=== PATIENT | male | born 1980 | race Caucasian/White ===

== ENCOUNTER 2018-01-10 01:41 | Observation (INO) ==
[2018-01-10] MEDS ORDERED: *HR* LORazepam 2 MG/ML VIAL IVP ONE (01:46)
[2018-01-10] MEDS ORDERED: 0.9 % Sodium Chloride 1,000 ML IVC ONE (01:46)
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
[2018-01-10 02:09] LABS: Basophils # 0.1 K/mcL (0.0-0.2); Basophils % 0.2 %; Eosinophils % 0.1 %; Hematocrit 37.7 % (37.5-50.1); Hemoglobin 12.6 g/dL (12.9-16.9); Immature Granulocytes % 0.8 % (0-4); Lymphocytes # 1.4 K/mcL (0.6-4.6); Lymphocytes % 5.8 %; Mean Corpuscular HGB Conc 33.4 g/dL (31.6-35.5); Mean Corpuscular Hemoglobin 31.1 pg (28.0-33.3); Mean Corpuscular Volume 93.1 fL (83.0-100.0); Mean Platelet Volume 12.8 fL (9.4-12.4); Monocytes # 1.9 K/mcL (0.0-1.3); Monocytes % 7.6 %; Platelet Count 116 K/mcL (140-400); Red Blood Count 4.05 M/mcL (4.19-5.50); Red Cell Distribution Width 12.2 % (11.5-14.5); Segmented Neutrophils % 85.5 %
[2018-01-10 02:33] LABS: Bilirubin,Urine Negative (Negative); Blood,Urine Negative (Negative); Clarity,Urine Clear (Clear); Color,Urine Yellow (Yellow); Glucose,Urine (UA) Normal (Normal); Ketones,Urine Negative (Negative); Leukocyte Esterase,Urine Negative (Negative); Nitrite,Urine Negative (Negative); Protein,Urine Negative (Neg-Trace); Specific Gravity,Urine 1.019 (1.010-1.025); Urobilinogen,Urine Normal (Normal)
[2018-01-10 02:41] LABS: Alanine Aminotransferase 9 Units/L (7-52); Albumin 4.2 g/dL (3.5-5.7); Albumin/Globulin Ratio 1.8 (1.1-2.2); Alkaline Phosphatase 71 Units/L (34-104); Aspartate Amino Transferase 14 Units/L (13-39); BUN/Creatinine Ratio 9 (6-26); Bilirubin,Total 0.7 mg/dL (0.3-1.0); Blood Urea Nitrogen 10 mg/dL (6-20); Calcium 9.3 mg/dL (8.6-10.3); Carbon Dioxide 28 mEq/L (23-29); Chloride 104 mEq/L (98-107); Globulin 2.3 g/dL (2.4-3.5); Glucose 108 mg/dL (70-105); Magnesium 1.7 mg/dL (1.6-2.6); Osmolality,Calculated 284 (280-300); Phosphorous 2.5 mg/dL (2.7-4.5); Potassium 3.5 mEq/L (3.5-5.1); Sodium 137 mEq/L (136-145); Total Protein 6.5 g/dL (6.4-8.9); eGFR For African Americans > 60 (> 60); eGFR For Non-African Americans > 60 (> 60)
[2018-01-10 03:04] LABS: Amphetamine Screen,Urine Positive ng/mL (Cutoff=1000); Barbiturate Screen,Urine Negative ng/mL (Cutoff=200); Benzodiazepines Screen,Urine Negative ng/mL (Cutoff=200); Cannabinoid Screen,Urine Negative ng/mL (Cutoff = 50); Cocaine Screen,Urine Negative ng/mL (Cutoff= 300); Opiate Screen,Urine Positive ng/mL (Cutoff=300); Phencyclidine Screen,Urine Negative ng/mL (Cutoff=25)
[2018-01-10] MEDS ORDERED: Azithromycin 500 MG in D5% in Water 250 ML IVPB ONE (03:30)
[2018-01-10 03:42] LABS: VBG HCO3 29 mEq/L (21-27); VBG PCO2 56 mmHg (41-51); VBG PH 7.32 pH Units (7.32-7.42); VBG PO2 159 mmHg (25-50)
[2018-01-10] MEDS ORDERED: Ammonia Inhalant AMPUL ONE (04:21)
[2018-01-10] MEDS ORDERED: Ammonia Inhalant AMPUL IH ONE (04:29)
[2018-01-10] MEDS ORDERED: Naloxone 0.4 MG/ML INJ IVP PRN (08:57)
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
[2018-01-10] MEDS ORDERED: Potassium Phosphate 44 MEQ in 0.9 % Sodium Chloride 250 ML IVPB ONE (10:43)
[2018-01-10] MEDS ORDERED: *HR* LORazepam 2 MG/ML VIAL IVP STA (10:43)
[2018-01-10] MEDS ORDERED: *HR* LORazepam 2 MG/ML VIAL IVP PRN (11:08)
[2018-01-10] MEDS: Ampicillin/Sulbactam 3,000 MG in 0.9 % Sodium Chloride Mini Bag 100 ML IVPB SCH ×2 (11:14→17:23)
[2018-01-10] MEDS: 0.9 % Sodium Chloride 1,000 ML IVC SCH ×2 (11:14→23:42)
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
[2018-01-10] MEDS ORDERED: Phenytoin 1,000 MG in SYRINGE 1 EACH IVPB ONE (15:32)
--- NOTE | 2018-01-10 15:49 | EEG/EMG/Oth Biometrics Report ---
EEG Procedure Report Date of procedure: 01/10/18 EEG Procedure: Routine EEG Procedure Note: This is a report of a 21 channel bipolar and referential montage EEG. The posterior dominant rhythm consists primarily of beta frequencies posteriorly but she does not react to eye opening. Hyperventilation was not performed during the recording. Periods of drowsiness and stage II sleep were identified as referenced by dropout of the posterior resting rhythm and the occurrence of vertex activity, K complexes, and sleep spindles. Photic stimulation is performed and does not produce a driving response. The EKG rhythm strip reveals normal sinus rhythm at 78 bpm. Impressions: This EEG recording is within normal limits. There is no evidence of epileptiform activity identified during the recording. Comment: Beta frequencies may indeed represent sent a normal variant however may also be manufacturer representative of a host of metabolic causes, anxiety and medication effect namely benzodiazepines and barbiturates. A normal EEG does not preclude a diagnosis of seizure or epilepsy. If the clinical suspicion for seizure activity is high, serial EEGs or perhaps a prolonged recording may increase the yield. Please correlate clinically.
[2018-01-11] MEDS: Ampicillin/Sulbactam 3,000 MG in 0.9 % Sodium Chloride Mini Bag 100 ML IVPB SCH ×2 (01:03→06:03)
[2018-01-11] MEDS ORDERED: Acetaminophen 325 MG TABLET PO PRN (05:19)
[2018-01-11 06:06] LABS: Basophils % 0.3 %; Red Cell Distribution Width 12.4 % (11.5-14.5)
[2018-01-11 06:07] LABS: Eosinophils # 0.1 K/mcL (0.0-0.6); Eosinophils % 0.8 %; Hematocrit 34.6 % (37.5-50.1); Hemoglobin 11.5 g/dL (12.9-16.9); Immature Granulocytes % 0.3 % (0-4); Lymphocytes # 2.5 K/mcL (0.6-4.6); Lymphocytes % 20.8 %; Mean Corpuscular HGB Conc 33.2 g/dL (31.6-35.5); Mean Corpuscular Hemoglobin 31.5 pg (28.0-33.3); Mean Corpuscular Volume 94.8 fL (83.0-100.0); Mean Platelet Volume 13.6 fL (9.4-12.4); Monocytes # 0.9 K/mcL (0.0-1.3); Monocytes % 7.6 %; Neutrophils # 8.3 K/mcL (1.6-8.9); Nucleated Red Blood Cells 0.2 /100 WBC (0); Platelet Count 101 K/mcL (140-400); Red Blood Count 3.65 M/mcL (4.19-5.50); Segmented Neutrophils % 70.2 %
[2018-01-11 06:36] LABS: BUN/Creatinine Ratio 8 (6-26); Blood Urea Nitrogen 8 mg/dL (6-20); Calcium 8.2 mg/dL (8.6-10.3); Carbon Dioxide 25 mEq/L (23-29); Chloride 110 mEq/L (98-107); Glucose 126 mg/dL (70-105); Osmolality,Calculated 288 (280-300); Potassium 3.6 mEq/L (3.5-5.1); Sodium 139 mEq/L (136-145); eGFR For African Americans > 60 (> 60); eGFR For Non-African Americans > 60 (> 60)
[2018-01-11 07:08] VITALS: BP 122/69
--- NOTE | 2018-01-11 08:35 | Neurology Progress Note ---
Date of Encounter: 01/11/18 Time of Encounter: 08:33 Assessment and Plan (1) Altered mental status Current Visit: Yes Status: Acute Atypical case. Pt. may have had a symptomatic seizure due to the amphetamines. Not certain whether he truly has epilepsy. Noncompliance is also an issue as is medical insurance. I will check PHT level and follow up as an out patient. Seizure precautions were discussed. No driving. May d/c on PHT 300mg QD. Qualifiers: Altered mental status type: disorientation Qualified Code(s): R41.0 - Disorientation, unspecified Subjective Interval history: Chart reviewed, pt. seen and examined. Sleeping upon my entering the room. Easily aroused to voice. No complaints this am. No further seizures. MRI/EEG were both negative. Pt. loaded on PHT. Objective - Constitutional Vitals: Temp Pulse Resp BP Pulse Ox 98.6 F 91 16 122/69 93 01/11/18 07:03 01/11/18 07:03 01/11/18 07:03 01/11/18 07:03 01/11/18 07:03 - Neurological Exam Sensorimotor examination: Present: intact Motor examination - right side: 5/5: deltoids, biceps, triceps, director report, hip flexors, tibialis Anterior, quadriceps, toe extension (EHL), plantarflexion Motor examination - left side: 5/5: deltoids, biceps, triceps, hip flexors, director report , quadriceps, tibialis Anterior, toe extension (EHL), plantarflexion Sensation intact: Present: intact Mental Status Examination: Present: oriented to person, oriented to place, oriented to time, follows commands appropriately, drowsy, answers questions by nodding yes or no Cranial nerve examination: Present: PERRL, EOMI, sensory to face intact, mastication intact, no facial asymmetry is present, no dysarthria, hearing is intact symmetrically, soft palate elevates bilaterally upon phonation, flexes SCM and trapezius muscles symmetrically with full power, tongue protrudes midline, no atrophy or facial fasiculations present Results - Laboratory Findings CBC and BMP: 01/11/18 05:18 01/11/18 05:18 Abnormal lab findings: Abnormal lab results WBC 11.8 K/mcL (4.3-11.1) H D 01/11/18 05:18 RBC 3.65 M/mcL (4.19-5.50) L 01/11/18 05:18 Hgb 11.5 g/dL (12.9-16.9) L 01/11/18 05:18 Hct 34.6 % (37.5-50.1) L 01/11/18 05:18 Plt Count 101 K/mcL (140-400) L 01/11/18 05:18 MPV 13.6 fL (9.4-12.4) H 01/11/18 05:18 Nucleated RBCs/100 WBC 0.2 /100 WBC (0) H 01/11/18 05:18 Immature Plt Fraction 18.0 % (1.1-6.1) H 01/11/18 05:18 VBG pCO2 56 mmHg (41-51) H 01/10/18 03:40 VBG pO2 159 mmHg (25-50) H 01/10/18 03:40 VBG HCO3 29 mEq/L (21-27) H 01/10/18 03:40 Chloride 110 mEq/L (98-107) H 01/11/18 05:18 Glucose 126 mg/dL (70-105) H 01/11/18 05:18 POC Glucose 104 (58-89) H 01/10/18 19:41 Calcium 8.2 mg/dL (8.6-10.3) L 01/11/18 05:18 Phosphorus 2.5 mg/dL (2.7-4.5) L 01/10/18 02:02 Globulin 2.3 g/dL (2.4-3.5) L 01/10/18 02:02 Urine Opiates Screen Positive ng/mL (Pznzaz=839) H 01/10/18 02:28 Ur Amphetamines Screen Positive ng/mL (Eeclxe=2786) H 01/10/18 02:28 Consult Discharge Plan - Plan Referrals: NONE,PCP [Primary Care Provider] -
--- NOTE | 2018-01-11 09:29 | Discharge Summary ---
- NOTES TO OUTPATIENT PROVIDER Notes to Outpatient Provider: Establish PCP. Follow up with Neurologist Orders not resulted at time of discharge: Pending orders 01/10/18 15:41 Consult to Interpret Exam [CONS] Routine 01/10/18 16:02 Consult to Folder Seamer [CONS] Routine 01/11/18 08:39 Phenytoin Free and Total Routine Date of Encounter: 01/11/18 Time of Encounter: 09:26 - Discharge Diagnosis (1) Altered mental status Priority: Primary Status: Resolved Comments: resolved secondary to seizures, and possible polysubstance abuse patient is not interested in detox Qualifiers: Altered mental status type: disorientation Qualified Code(s): R41.0 - Disorientation, unspecified (2) Pneumonia Priority: Primary Status: Acute Comments: aspiration, possibly during seizure episode discharged on augmentin Qualifiers: Pneumonia type: due to unspecified organism Laterality: left Lung location: lower lobe of lung Qualified Code(s): J18.1 - Lobar pneumonia, unspecified organism (3) Positive urine drug screen Priority: Primary Status: Acute Comments: refuses intervention (4) Seizure Priority: Primary Status: Acute Comments: neurology evaluated patient in-house Brain MRI unremarkable EEG unemarkable Moslty due to non-compliance Started on dilantin by neurologist Discharged on same Follow up with PCP and neurolgist (5) Sepsis Priority: Primary Status: Ruled-out Comments: ruled out SIRS can be explained by seizures, patient is afebrile Qualifiers: Sepsis type: sepsis due to unspecified organism Qualified Code(s): A41.9 - Sepsis, unspecified organism (6) DVT prophylaxis Priority: Primary Status: Resolved Hospital course: Mr. Pozo is a 37 year old male Discharge discussed with: patient Time spent discussing smoking cessation with patient: 3 to 10 minutes - Time Spent with Patient Total time spent providing and/or coordinating discharge services: Less than 30 minutes - Discharge Medications Prescriptions: Amoxicillin/Clavulanate [Augmentin] 875 mg PO BIDWM #10 tablet Phenytoin ER [Dilantin ER] 300 mg PO HS #90 capsule Home Medications: Amoxicillin/Clavulanate [Augmentin] 875 mg PO BIDWM #10 tablet 01/11/18 [Rx] Phenytoin ER [Dilantin ER] 300 mg PO HS #90 capsule 01/11/18 [Rx] Allergies/Adverse Reactions: 3 Allergy/AdvReac Type Severity Reaction Status Date / Time No Known Allergies Allergy Verified 04/20/17 18:58 Date of admission: 01/10/18 04:28 Primary care physician: PCP NONE Consults: 01/10/18 11:01 Consult to Neurology [CONS] Stat Consulting Provider: [facility] Reason for Consult: Seziure-like activity; Hx of seizure secondary to TBI in 2003 Time Notified: 11:02 Call Completed: Yes 01/10/18 15:41 Consult to Interpret Exam [CONS] Routine Consulting Provider: Godwin Gallo Consult to Interpret Exam: Interpret EEG 01/10/18 16:02 Consult to Folder Seamer [CONS] Routine Reason for SW Consult: Substance abuse Discharging clinician: Jeferson Lucas Anticipated date of discharge: 01/11/18 - Constitutional Vitals: Temp Pulse Resp BP Pulse Ox 98.6 F 91 16 122/69 93 01/11/18 07:03 01/11/18 07:03 01/11/18 07:03 01/11/18 07:03 01/11/18 07:03 General appearance: Present: A&O X 3, no acute distress - Head Head exam: Present: atraumatic, normocephalic - Eye Eye exam: Present: PERRL, conjuntiva pink, sclera anicteric Pupils: Present: PERRL - Neck Neck exam general surgery: Present: supple, trachea midline. Absent: lymphadenopathy - Respiratory Respiratory exam: Present: CTAB. Absent: accessory muscle use, rales, rhonchi, wheezes - Cardiovascular Cardiovascular exam: Present: RRR, +S1, +S2. Absent: diastolic murmur, gallop, rubs, systolic murmur - GI/Abdominal GI/Abdominal exam: Present: normal bowel sounds, soft, no peritoneal signs. Absent: distended, tenderness - Extremities Exam Extremities exam: Present: warm, radial pulses palpable and symmetrical. Absent : calf tenderness, cyanotic, pedal edema - Neurological Exam Neurological exam: Present: alert, CN II-XII intact, oriented X3, no focal deficits. Absent: pronater drift, facial droop, speech deficit - Skin Skin exam: Present: dry, intact - Patient Status Disposition: Home, Self-Care Condition: Good Functional capacity at discharge: independent ambulation Overall status at discharge: patient is back to baseline - Discharge Instructions Instructions: Phenytoin (By mouth), Amoxicillin/Clavulanate Potassium (By mouth ), Sepsis (DC), Non-epileptic Seizures (DC), Pneumonia (DC) Follow Up With: Godwin Gallo DO [Partnered Physician] - 01/14/18 12:15 pm (DR GALLO WILL MONITOR DILANTIN LEVELS AND GIVE REFILLS FOR DILANTIN ER, YOU MUST KEEP THESE APPOINTMENTS IN ATTEMPTS TO PREVENT FUTURE SEIZURES) NONE,PCP [Primary Care Provider] - Rigo Bustos MD [Non-Partnered Physician] - 01/14/18 9:15 am Additional Instructions: follow neurologist, DR Godwin Gallo as outpatient for dilantin blood levels and prescription refills No driving until Dr. Gallo from neurology states ok to drive. - Diet and Activity Activity: resume usual activities as tolerated Diet: regular diet
[2018-01-13 19:13] LABS: Phenytoin (Dilantin) Free <0.5 ug/mL (1.0-2.5); Phenytoin Dose NOT PROVIDED; Phenytoin Dose Frequency NOT PROVIDED; Phenytoin Route NOT PROVIDED
[2018-01-14 07:55] LABS: Phenytoin Type of Draw NOT PROVIDED
== END 2018-01-11 14:00 | disposition home or self-care (01) ==
LOC: EMEROO 01:41 → 2NENU 01:41 → SUATTDRO 04:28 → 2NENU 05:11
PROVIDERS: ADMIT Internal Medicine; ATTEND Internal Medicine